=== PATIENT | female | born 1930 | race Caucasian/White ===

== ENCOUNTER 2016-10-10 12:48 | Emergency (ER) | payer MEDICARE, OTHER ==
[~2016-10-10] VITALS: Ht 170.2 cm; Wt 47.0 kg
[~2016-10-10 12:48] MED LIST: CARV3.125 PO; CLON0.1T PO; CLON0.5T PO; DIGO0.12 PO; HYDR-3533 PO; LEVO.15 PO; SENO8.6T5 PO; TRAM50TA PO; ZOLO50TA PO
[2016-10-10 12:54] VITALS: BP 195/81; PULSE 48; RESP 18; TEMP 98.3; O2SAT 94
--- NOTE | 2016-10-10 13:41 | RADRPT ---
EXAM DATE/TIME: 10/10/2016 13:17 [place] COMPARISON: No previous studies available for comparison. INDICATIONS : Right hand pain, bruising, and swelling. Previous hand fracture already diagnosed. MEDICAL HISTORY : None. SURGICAL HISTORY : None. ENCOUNTER: [facility] ACUITY: 2 weeks PAIN SCORE: 10/10 LOCATION: Right middle hand. FINDINGS: Normal bone density. Mild degenerative changes of the thumb basal joint. Oblique mildly displaced fra cture through the fourth metacarpal with soft tissue swelling. CONCLUSION: Fourth metacarpal fracture. Degenerative changes. Ed Rocha MD on October 10, 2016 at 13:39 Board Certified Radiologist. This report was verified electronically.
--- NOTE | 2016-10-10 14:08 | PD ---
HPI Chief Complaint: Injury Time Seen by Provider: 12:58 Travel History International Travel<30 days: No Contact w/Intl Traveler<30days: No Traveled to known affect area: No History of Present Illness HPI This is an 86-year-old female who is on hospice who presents to the emergency department having had a fall in October 04 having pain and a third and fourth metacarpal fracture of the right hand. She presents today because her hand is been more swollen, dark and discolored. Her daughter was concerned that she may have an infection or problem with her blood flow so she came to the emergency department. The patient does not Provide any history. PFSH Past Medical History Arthritis: Yes (OA) Asthma: No Atrial Fibrillation: Yes Autoimmune Disease: No Blood Disorders: No Anxiety: Yes Depression: Yes Heart Rhythm Problems: Yes Cancer: No Cardiac Catheterization: Yes (2013 ) Cardiovascular Problems: Yes High Cholesterol: Yes Chemotherapy: No Chest Pain: Yes Congestive Heart Failure: Yes COPD: No Cerebrovascular Accident: Yes (TIA, CVA LT SIDED DEFICIT) Coronary Artery Disease: Yes Diabetes: No Diminished Hearing: No Endocrine: Yes Gastrointestinal Disorders: Yes (ULCERATIVE COLITIS) GERD: Yes Glaucoma: No Gout: Yes Genitourinary: Yes (INCONTINENCE WITH IMPLANT, HX UTI) Headaches: Yes Hiatal Hernia: Yes Heparin Induced Thrombocytopen: No Hypertension: Yes Immune Disorder: No Implanted Vascular Access Dvce: Yes Kidney Stones: Yes (X 6) Musculoskeletal: Yes Neurologic: Yes Psychiatric: No Reproductive: No Respiratory: No Migraines: No Myocardial Infarction: Yes (X2) Radiation Therapy: No Renal Failure: Yes (CHRONIC KIDNEY DISEASE STAGE III) Seizures: No Sickle Cell Disease: No Sleep Apnea: No Thyroid Disease: Yes (HYPOTHYROID) Ulcer: No Tetanus Vaccination: Unknown Menopausal: Yes Past Surgical History Abdominal Surgery: Yes AICD: No Appendectomy: Yes Arteriovenous Shunt: No Body Medical Devices: INTERSTIM BLADDER IMPLANT Cardiac Surgery: No Coronary Artery Bypass Graft: No Coronary Stent: Yes (x4) Ear Surgery: No Endocrine Surgery: No Eye Surgery: Yes (BILAT CATARACT REMOVAL WITH EYE IMPLANTS) Genitourinary Surgery: Yes (SLING in bladder) Gynecologic Surgery: Yes Hysterectomy: Yes Insulin Pump: No Joint Replacement: No Neurologic Surgery: No Oral Surgery: No Pacemaker: No Thoracic Surgery: No Other Surgery: Yes Family History Family Myocardial Infarction: Yes Social History Alcohol Use: No Tobacco Use: No Substance Use: No Allergies-Medications (Allergen,Severity, Reaction): Coded Allergies: Amlodipine (Verified Allergy, Severe, 10/10/16) PT IS UNSURE OF REACTON Bumble Bee (Verified Allergy, Severe, SWELLING, 10/10/16) Codeine (Verified Allergy, Severe, 10/10/16) PT IS UNSURE OF REACTON Diltiazem (Verified Allergy, Severe, 10/10/16) PT IS UNSURE OF REACTION MRI PRECAUTION (Verified Allergy, Severe, 10/10/16) PT HAS BLADDER CONTROL IMPLANT NO MRI Macrodantin (Verified Allergy, Severe, 10/10/16) PT IS UNSURE OF REACTION Nonsteroidal Anti-Inflammatory Agts (Verified Allergy, Severe, 10/10/16) PT IS UNSURE OF REACTON Prednisone (Verified Allergy, Severe, 10/10/16) PT STATES ONLY ALLERGIC TO HIGH DOSES OF [place],CURRENTLY TAKING LOW DOSE WITH NO SIDE EFFECTS Tetanus Toxoid (Verified Allergy, Severe, 10/10/16) PT IS UNSURE OF REACTION Ticlid (Verified Allergy, Severe, 10/10/16) PT IS UNSURE OF REACTON Valium (Verified Allergy, Severe, Psychosis, 10/10/16) Lipitor (Verified Allergy, Unknown, 10/10/16) INCREASED LFTS Digoxin (Verified Adverse Reaction, Intermediate, 10/10/16) DIGOXIN TOXICITY Uncoded Allergies: CLINORIL (Allergy, Severe, Anaphylaxis, 05/30/13) MECLOFENAMATE SODIUM (Allergy, Severe, Anaphylaxis, 05/30/13) Reported Meds & Prescriptions Reported Meds & Active Scripts Active Lortab (Hydrocodone-Acetaminophen) 5-325 Mg Tab 0.5-1 Tab PO Q4H PRN Reported Clonidine (Clonidine HCl) 0.1 Mg Tab 0.1 Mg PO DAILY Zoloft (Sertraline HCl) 50 Mg Tab 50 Mg PO DAILY Tramadol (Tramadol HCl) 50 Mg Tab 50 Mg PO Q8H PRN Senokot (Sennosides) 8.6 Mg Tab 8.6 Mg PO BID Clonazepam 0.5 Mg Tab 0.25 Mg PO BID Coreg (Carvedilol) 3.125 Mg Tab 3.125 Mg PO BID Synthroid (Levothyroxine Sodium) 150 Mcg Tab 150 Mcg PO DAILY Digoxin 0.125 Mg Tab 125 Mg PO DAILY Review of Systems ROS Limitations: Poor Historian Physical Exam Narrative GENERAL: Frail elderly female SKIN: Ecchymoses at different stages over the left face, right forearm and hand HEAD: Normocephalic. EYES: No scleral icterus. No injection or drainage. NECK: Supple, trachea midline. CARDIOVASCULAR: Regular rate and rhythm without murmurs. Normal capillary refill in all fingers of the right hand and 2+ radial pulse in the right hand RESPIRATORY: Breath sounds equal bilaterally. No accessory muscle use. GASTROINTESTINAL: Abdomen soft, non-tender, nondistended. MUSCULOSKELETAL: Swelling involving the dorsal aspect of the right hand with some ulnar deviation of the fourth digit at the MCP. Dorsal hand compartments are soft. Neuro: Unable to assess given patient does not follow commands Data Data Last Documented VS Vital Signs Date Time Temp Pulse Resp B/P Pulse Ox O2 Delivery O2 Flow Rate FiO2 10/10/16 12:54 98.3 48 18 195/81 94 Orders Hand, Complete ([id number]) (10/10/16 13:33) MDM Medical Decision Making Medical Screen Exam Complete: Yes Emergency Medical Condition: Yes Interpretation(s) X-ray: Fourth metacarpal fracture Differential Diagnosis Metacarpal fracture, compartment syndrome, vascular injury Narrative Course This is an 86-year-old female who is on hospice who presents to the emergency department having had a fall several days ago with to suspected metacarpal fractures of the right hand. It is difficult to obtain a neuro exam of the right hand that she has a normal vascular exam with good capillary refill and strong pulses. Her compartments are soft. I don't suspect a compartment syndrome. I think the discoloration and edema of her hand is normal swelling. Patient is a family friend of Dr. Altman who came to see the patient in the emergency department and spoke to Dr. Sanchez who agreed to see the patient in clinic tomorrow. Splint was reapplied and patient was discharged. Diagnosis Primary Impression: Metacarpal bone fracture Qualified Code: S62.354D - Closed nondisplaced fracture of shaft of fourth metacarpal bone of right hand with routine healing, subsequent encounter Referrals: Sherry Sanchez MD Patient Instructions: General Instructions Additional Instructions: Follow-up with Dr. Sanchez tomorrow without fail. Keep her splint on until then. If your hand becomes cold, pale or severely painful return to the emergency room. Med/Other Pt SpecificInfo: No Change to Meds Disposition: 01 DISCHARGE HOME Condition: Stable Zuly Rocha MD Oct 10, 2016 14:08
[2016-10-10] MEDS ORDERED: FERR150C PO (15:05)
[2016-10-10] MEDS ORDERED: NITR0.4S SL (15:05)
[2016-10-10] MEDS ORDERED: TYLE325T PO (15:05)
[2016-10-10] MEDS ORDERED: CLON0.5T PO (15:05)
[2016-10-10] MEDS ORDERED: PROM1SUP7 PR (15:05)
[2016-10-10] MEDS ORDERED: BUDE3CAP PO (15:05)
[2016-10-10] MEDS ORDERED: SENE8.6T PO (15:05)
[2016-10-10] MEDS ORDERED: TRAM50TA PO (15:05)
[2016-10-10 16:15] VITALS: BP 206/93; PULSE 54; RESP 18; O2SAT 95
== END 2016-10-10 16:54 | disposition home or self-care (01) ==
LOC: NEPC 12:48
DX: S62.354D Nondisplaced fracture of shaft of fourth metacarpal bone, right hand, subsequent encounter for fracture with routine healing (principal); M19.90 Unspecified osteoarthritis, unspecified site; E78.00 Pure hypercholesterolemia, unspecified; I50.9 Heart failure, unspecified; I25.10 Atherosclerotic heart disease of native coronary artery without angina pectoris; M10.9 Gout, unspecified; I12.9 Hypertensive chronic kidney disease with stage 1 through stage 4 chronic kidney disease, or unspecified chronic kidney disease; E03.9 Hypothyroidism, unspecified
CPT/HCPCS: 29125; 73130